=== PATIENT | male | born 1985 | race Caucasian/White ===

== ENCOUNTER 2020-05-17 09:01 | Day surgery (SDC) | payer OTHER ==
[~2020-05-17] VITALS: Ht 180.3 cm; Wt 129.6 kg
[2020-05-17 09:42] VITALS: BP 141/84; PULSE 69; TEMP 97.4
[2020-05-17] MEDS ORDERED: VITAMINC500CH PO (09:48)
[2020-05-17] MEDS ORDERED: TENORMIN 2525 MG/TAB PO (09:48)
[2020-05-17] MEDS ORDERED: ONE-A-DAY ESSE1 EACH PO (09:48)
[2020-05-17 11:10] VITALS: BP 130/72; PULSE 67; TEMP 98.5
[2020-05-17 11:25] VITALS: BP 129/76; PULSE 65
[2020-05-17 11:40] VITALS: BP 125/77; PULSE 62
[2020-05-17 12:01] VITALS: BP 103/53; PULSE 67
== END 2020-05-17 11:55 | disposition home or self-care (01) ==
LOC: SDCO 09:01
DX: D12.5 Benign neoplasm of sigmoid colon (principal); D12.3 Benign neoplasm of transverse colon; I10 Essential (primary) hypertension; F17.290 Nicotine dependence, other tobacco product, uncomplicated; Z20.822 Contact with and (suspected) exposure to COVID-19
CPT/HCPCS: J2704; J7030